=== PATIENT | female | born 1960 | race African-American/Black ===

== ENCOUNTER 2018-08-29 21:00 | Inpatient (IN) | payer SELFPAY ==
[2018-08-29] MEDS ORDERED: LEVALBUTEROL 1.25 MG/3 ML NEB ONE (21:39)
[2018-08-29] MEDS ORDERED: METHYLPREDNISOLONE 125 MG INJ ONE (21:39)
[2018-08-29 21:40] LABS: Absolute Lymphocytes (CBC) 0.8 K/uL (0.7-4.9); Absolute Monocytes 0.8 K/uL (0.1-1.3); Absolute Neutrophil 8.4 K/uL (1.8-8.0); Basophils % 0.2 % (0-1.3); Eosinophils % 0.2 % (0-4.4); Hematocrit 30.6 % (36.0-45.0); MPV 8.5 fL (7.6-11.3); Monocytes % 7.5 % (3.3-12.3); RBC Red Blood Cell Count 3.07 M/uL (3.86-4.86)
[2018-08-29] MEDS ORDERED: NA CHLORIDE 0.9% 1,000 ML ONE (21:40)
[2018-08-29] MEDS ORDERED: MAGNESIUM SULFATE 1 gm IVPB 1 GM/100 ML BAG IV ONE (21:40)
[2018-08-29 21:44] LABS: Protime INR 0.97
[2018-08-29] MEDS ORDERED: MORPHINE 4 MG/ML SYR ONE (21:56)
[2018-08-29] MEDS ORDERED: ACETAMINOPHEN 325 MG TABLET ONE (21:56)
[2018-08-29 22:02] LABS: ALT/SGPT 22 U/L (12-78); AST/SGOT 15 U/L (15-37); Albumin 3.8 g/dL (3.4-5.0); Alkaline Phosphatase 68 U/L (45-117); BUN Blood Urea Nitrogen 17 mg/dL (7-18); Bicarbonate 23 mmol/L (21-32); Bilirubin Direct 0.1 mg/dL (0-0.2); Bilirubin Total 0.5 mg/dL (0.2-1.0); Glucose Level 115 mg/dL (74-106); Lipase 98 U/L (73-393); Magnesium 2.3 mg/dL (1.8-2.4); NT PRO-BNP 153 pg/mL (<125); Potassium 3.5 mmol/L (3.5-5.1); Protein, Total 7.3 g/dL (6.4-8.2); Sodium Level 139 mmol/L (136-145); Troponin (Emerg Dept Use Only) < 0.02 ng/mL (0.0-0.045)
--- NOTE | 2018-08-30 01:27 | ER ---
Nurse's Notes [facility] Name: Damaris Oneal Age: 58 yrs Sex: Female : 1960 Arrival Date: 08/29/2018 Time: 21:03 Bed 20 Private MD: Diagnosis: Pneumonia;Hypoxia;Asthma Exacerbation Presentation: 08/29 21:13 Presenting complaint: Patient states: fever, productive cough, lethargic X3 days. ak1 Transition of care: patient was not received from another setting of care. Onset of symptoms is unknown. Risk Assessment: Do you want to hurt yourself or someone else? Patient reports no desire to harm self or others. Care prior to arrival: None. 21:13 Method Of Arrival: Wheelchair ak1 21:13 Acuity: LINDA 3 ak1 21:24 Initial Sepsis Screen: Does the patient meet any 2 criteria? Temp <36.0*C (96.8*F)) or jd3 > 38.3*C (100.9*F). HR > 90 bpm. Yes Does the patient have a suspected source of infection? Yes: Productive cough/pneumonia If YES to both, name of provider notified: Ashok SCOTT. Triage Assessment: 21:15 General: Appears uncomfortable, ill, Behavior is cooperative, drowsy. Neuro: Level of ak1 Consciousness is awake, alert, obeys commands, lethargic, Oriented to person, place, time, situation. Historical: - Allergies: 21:15 No Known Allergies; ak1 - Home Meds: 21:15 lisinopril 30 mg Oral tab 1 tab once daily [Active]; Singulair Oral [Active]; ak1 Prednisone Oral [Active]; cataract drops [Active]; - PMHx: 21:15 Hypertension; ak1 - Immunization history:: Adult Immunizations unknown. - Social history:: Smoking status: Patient uses tobacco products, denies chronic smoking, but will smoke occasionally. - Ebola Screening: : No symptoms or risks identified at this time. Screenin:24 Abuse screen: Denies threats or abuse. Nutritional screening: No deficits noted. jd3 Tuberculosis screening: No symptoms or risk factors identified. Fall Risk IV access (20 points). Ambulatory Aid- Crutches/Cane/Walker (15 pts). Gait- Weak (10 pts.). Mental Status- Overestimates/Forgets Limitations (15 pts.). Total Weaver Fall Scale indicates High Risk Score (45 or more points). Fall prevention measures have been instituted. Side Rails Up X 2 Placed Close to Nursing Station Frequent Obs/Assessments Occuring Family Present and informed to notify staff if the need to leave the bedside. Assessment: 21:20 General: Appears uncomfortable, Behavior is cooperative, crying, restless. Pain: jd3 Complains of pain in reports generalized pain and chest pain Quality of pain is described as aching. Neuro: Level of Consciousness is awake, alert, obeys commands, Oriented to person, place, time, situation. Cardiovascular: Heart tones S1 S2 present Capillary refill < 3 seconds Patient's skin is warm and dry. Respiratory: Reports shortness of breath cough that is Airway is patent Respiratory effort is even, unlabored, Respiratory pattern is regular, symmetrical, Breath sounds with wheezes bilaterally. GI: Abdomen is round Bowel sounds present X 4 quads. Abd is soft and non tender X 4 quads. Reports nausea, Patient currently denies vomiting. : No signs and/or symptoms were reported regarding the genitourinary system. EENT: Parent/caregiver reports the patient having nasal congestion. Derm: Skin is intact, Skin is dry, Skin is normal, Skin temperature is warm. Musculoskeletal: Circulation, motion, and sensation intact. Range of motion: intact in all extremities. 22:27 Reassessment: Patient appears in no apparent distress at this time. No changes from jd3 previously documented assessment. Patient and/or family updated on plan of care and expected duration. Pain level reassessed. Patient is alert, oriented x 3, equal unlabored respirations, skin warm/dry/pink. 23:30 Reassessment: Patient appears in no apparent distress at this time. No changes from jd3 previously documented assessment. Patient and/or family updated on plan of care and expected duration. Pain level reassessed. Patient is alert, oriented x 3, equal unlabored respirations, skin warm/dry/pink. 08/30 00:19 Reassessment: Patient appears in no apparent distress at this time. Patient and/or jd3 family updated on plan of care and expected duration. Pain level reassessed. Patient is alert, oriented x 3, equal unlabored respirations, skin warm/dry/pink. pt with decreased O2 sat at 88%, placed on 2 L O2 nasal canula. provider notified, no new orders at this time. 01:12 Reassessment: Patient appears in no apparent distress at this time. No changes from j previously documented assessment. Patient and/or family updated on plan of care and expected duration. Pain level reassessed. Patient is alert, oriented x 3, equal unlabored respirations, skin warm/dry/pink. Vital Signs: 08/29 21:15 BP 137 / 64; Pulse 111; Resp 20; Temp 101.3(O); Pulse Ox 94% on R/A; Weight 74.84 kg ak1 (R); Height 5 ft. 7 in. (170.18 cm) (R); Pain 4/10; 22:28 BP 151 / 74; Pulse 110; Resp 20 S; Pulse Ox 94% on R/A; jd3 23:31 BP 143 / 80; Pulse 86; Resp 17 S; Pulse Ox 93% on R/A; jd3 08/30 00:19 BP 146 / 79; Pulse 94; Resp 20 S; Pulse Ox 94% on 2 lpm NC; jd3 01:12 BP 137 / 72; Pulse 83; Resp 18 S; Pulse Ox 97% on R/A; jd3 08/29 21:15 Body Mass Index 25.84 (74.84 kg, 170.18 cm) [facility] ED Course: 08/29 21:03 Patient arrived in ED. am2 21:11 Ashok Rebolledo PA is PHCP. [facility] 21:11 Chris Israel MD is Attending Physician. [facility] 21:13 Triage completed. ak1 21:13 Pradip Garcia, RN is Primary Nurse. j 21:15 Arm band placed on Patient placed in an exam room, on a stretcher, on cardiac care unit nurse, ak1 on pulse oximetry, Patient notified of wait time. 21:23 Patient has correct armband on for positive identification. Bed in low position. Call j light in reach. Side rails up X2. Adult w/ patient. 21:41 Inserted saline lock: 20 gauge in right antecubital area, using aseptic technique. jd3 Blood collected. placed by [facility] tech. 23:42 Patient moved to NM via stretcher. kw1 08/30 00:11 CT completed. Patient tolerated procedure well. Patient moved back from CT. kw1 00:17 CT Head Brain wo Cont In Process Unspecified. EDMS 00:21 Chest For PE Angio CT In Process Unspecified. EDMS 01:19 Lester Rush MD is Hospitalizing Provider. jmm 01:54 No provider procedures requiring assistance completed. jd3 01:54 Patient admitted, IV remains in place. jd3 Administered Medications: 08/29 21:43 Drug: Xopenex (3) 1.25 mg Route: Inhalation; jd3 08/30 01:51 Follow up: Response: No adverse reaction jd3 08/29 21:44 Drug: Magnesium Sulfate 1 grams Route: IVPB; Infused Over: 1 hrs; Site: right [facility] antecubital; 08/30 01:50 Follow up: Response: No adverse reaction; IV Status: Completed infusion jd3 08/29 21:44 Drug: SOLU-Medrol 125 mg Route: IVP; Site: right antecubital; jd3 08/30 01:50 Follow up: Response: No adverse reaction jd3 08/29 21:44 Drug: NS 0.9% 1000 ml Route: IV; Rate: 1 bolus; Site: right antecubital; jd3 08/30 01:50 Follow up: Response: No adverse reaction; IV Status: Completed infusion jd3 08/29 21:52 Drug: morphine 2 mg Route: IVP; Site: right antecubital; jd3 08/30 01:49 Follow up: Response: No adverse reaction jd3 08/29 21:52 Drug: Tylenol 650 mg Route: PO; jd3 08/30 01:49 Follow up: Response: No adverse reaction jd3 08/29 23:33 Drug: morphine 2 mg Route: IVP; Site: right antecubital; jd3 08/30 01:49 Follow up: Response: No adverse reaction jd3 Outcome: 01:20 Decision to Hospitalize by Provider. jmm 02:04 Admitted to Med/surg accompanied by tech, via stretcher, room 410, with chart, Report jd3 called to Sherri SCOTT 02:04 Condition: stable 02:04 Instructed on the need for admit, Demonstrated understanding of instructions. 02:07 Patient left the ED. jd3 Signatures: Dispatcher [employer] EDMS Ashok Rebolledo PA PA jmm Krenek, Amber, RN RN ak1 Nicol Jung am2 Pradip Garcia, RN RN jd3 Tova Javier kw1 Corrections: (The following items were deleted from the chart) 08/29 23:18 21:20 Cardiovascular: Heart tones S1 S2 present Capillary refill < 3 seconds Patient's jd3 skin is warm and dry. Rhythm is jd3 23:18 21:20 Cardiovascular: Heart tones S1 S2 present Capillary refill < 3 seconds Patient's jd3 skin is warm and dry. Rhythm is regular jd3 23:31 21:20 Neuro: Level of Consciousness is awake, alert, obeys commands, Oriented to jd3 person, place, situation, jd3 23:31 22:27 Reassessment: Patient appears in no apparent distress at this time. No changes jd3 from previously documented assessment. Patient and/or family updated on plan of care and expected duration. Pain level reassessed. jd3 : 23:30 Reassessment: Patient appears in no apparent distress at this time. No changes jd3 from previously documented assessment. Patient and/or family updated on plan of care and expected duration. Pain level reassessed. jd3 08/30 01:12 00:19 Reassessment: Patient appears in no apparent distress at this time. Patient jd3 and/or family updated on plan of care and expected duration. Pain level reassessed. Patient is alert, oriented x 3, equal unlabored respirations, skin warm/dry/pink. jd3 :08/29 21:24 Initial Sepsis Screen: Does the patient meet any 2 criteria? Temp <36.0*C jd3 (96.8*F)) or > 38.3*C (100.9*F). HR > 90 bpm. Yes Does the patient have a suspected source of infection? Yes: Productive cough/pneumonia If YES to both, name of provider notified: Ashok SCOTT jd3
--- NOTE | 2018-08-30 01:27 | EDPHYS ---
Physician Documentation [facility] Name: Damaris Oneal Age: 58 yrs Sex: Female : 1960 Arrival Date: 08/29/2018 Time: 21:03 Bed 20 Private MD: ED Physician Chris Israel HPI: 08/29 21:24 This 58 yrs old Black Female presents to ER via Wheelchair with complaints of Cough, jmm fever. 21:24 The patient or guardian reports cough, described as moderate, with productive sputum. jmm Onset: The symptoms/episode began/occurred gradually, 2 day(s) ago. Modifying factors: The symptoms are alleviated by nothing. Associated signs and symptoms: Pertinent positives: fever. This is a 58 year old female with a history of asthma, htn that presents to the ED with cough, shortness of breath beginning 2 days ago she attributed to asthma. Patient states she did not receive flu vaccine. . Historical: - Allergies: 21:15 No Known Allergies; ak1 - Home Meds: 21:15 lisinopril 30 mg Oral tab 1 tab once daily [Active]; Singulair Oral [Active]; ak1 Prednisone Oral [Active]; cataract drops [Active]; - PMHx: 21:15 Hypertension; ak1 - Immunization history:: Adult Immunizations unknown. - Social history:: Smoking status: Patient uses tobacco products, denies chronic smoking, but will smoke occasionally. - Ebola Screening: : No symptoms or risks identified at this time. ROS: 21:24 Abdomen/GI: Negative for abdominal pain, nausea, vomiting, diarrhea, and constipation, jmm Back: Negative for injury and pain, : Negative for injury, bleeding, discharge, and swelling, MS/Extremity: Negative for injury and deformity, Skin: Negative for injury, rash, and discoloration, Neuro: Negative for headache, weakness, numbness, tingling, and seizure. 21:24 Constitutional: Positive for fever. 21:24 Respiratory: Positive for cough, shortness of breath. 21:24 All other systems are negative. Exam: 21:24 Head/Face: atraumatic. Chest/axilla: Normal chest wall appearance and motion. jmm Cardiovascular: Regular rate and rhythm. No edema appreciated 21:24 Abdomen/GI: Non distended, soft Back: Normal ROM Skin: General appearance color normal MS/ Extremity: Moves all extremities, no obvious deformities appreciated, no edema noted to the lower extremities Neuro: Awake and alert, normal gait Psych: Behavior is normal, Mood is normal, Patient is cooperative and pleasant 21:24 Constitutional: The patient appears alert, awake, anxious, uncomfortable. 21:24 Respiratory: mild respiratory distress is noted, Respirations: normal, Breath sounds: wheezing: is heard diffusely. Vital Signs: 21:15 BP 137 / 64; Pulse 111; Resp 20; Temp 101.3(O); Pulse Ox 94% on R/A; Weight 74.84 kg ak1 (R); Height 5 ft. 7 in. (170.18 cm) (R); Pain 4/10; 22:28 BP 151 / 74; Pulse 110; Resp 20 S; Pulse Ox 94% on R/A; jd3 23:31 BP 143 / 80; Pulse 86; Resp 17 S; Pulse Ox 93% on R/A; [facility] 08/30 00:19 BP 146 / 79; Pulse 94; Resp 20 S; Pulse Ox 94% on 2 lpm NC; jd3 01:12 BP 137 / 72; Pulse 83; Resp 18 S; Pulse Ox 97% on R/A; [facility] 08/29 21:15 Body Mass Index 25.84 (74.84 kg, 170.18 cm) ak MDM: 08/29 21:22 Patient medically screened. [facility] 08/30 01:17 Data reviewed: vital signs, nurses notes, lab test result(s), radiologic studies, CT [facility] scan. Counseling: I had a detailed discussion with the patient and/or guardian regarding: the historical points, exam findings, and any diagnostic results supporting the discharge/admit diagnosis, lab results, radiology results, the need for further work-up and treatment in the hospital. ED course: I discussed the patient with Dr. Rush whom accepted admission. . 08/29 21:10 Order name: Flu; Complete Time: 21:47 [facility] 08/29 21:13 Order name: Basic Metabolic Panel; Complete Time: 22:07 [facility] 08/29 21:13 Order name: CBC with Diff; Complete Time: 21:47 [facility] 08/29 21:13 Order name: LFT's; Complete Time: 22:07 [facility] 08/29 21:13 Order name: Magnesium; Complete Time: 22:07 [facility] 08/29 21:13 Order name: NT PRO-BNP; Complete Time: 22:07 [facility] 08/29 21:13 Order name: PT-INR; Complete Time: 21:47 [facility] 08/29 21:13 Order name: Troponin (emerg Dept Use Only); Complete Time: 22:07 [facility] 08/29 21:13 Order name: Lipase; Complete Time: 22:07 [facility] 08/29 21:13 Order name: Procalcitonin; Complete Time: 22:34 [facility] 08/29 21:13 Order name: Blood Culture Adult (2) [facility] 08/29 21:13 Order name: Lactate; Complete Time: 22:07 [facility] 08/29 22:52 Order name: Chest For PE Angio CT [facility] 08/30 00:25 Order name: Urine Dipstick--Ancillary (enter results) [facility] 08/29 21:13 Order name: EKG; Complete Time: 21:14 [facility] 08/29 21:13 Order name: Cardiac monitoring; Complete Time: 21:20 [facility] 08/29 21:13 Order name: EKG - Nurse/Tech; Complete Time: 21:41 [facility] 08/29 21:13 Order name: IV Saline Lock; Complete Time: 21:41 [facility] 08/29 21:13 Order name: Labs collected and sent; Complete Time: 21:42 [facility] 08/29 21:13 Order name: O2 Per Protocol; Complete Time: 21:20 [facility] 08/29 21:13 Order name: O2 Sat Monitoring; Complete Time: 21:20 [facility] 08/29 23:24 Order name: CT Head Brain wo Cont [facility] Administered Medications: 08/29 21:43 Drug: Xopenex (3) 1.25 mg Route: Inhalation; [facility] 08/30 01:51 Follow up: Response: No adverse reaction [facility] 08/29 21:44 Drug: Magnesium Sulfate 1 grams Route: IVPB; Infused Over: 1 hrs; Site: right [facility] antecubital; 08/30 01:50 Follow up: Response: No adverse reaction; IV Status: Completed infusion [facility] 08/29 21:44 Drug: SOLU-Medrol 125 mg Route: IVP; Site: right antecubital; [facility] 08/30 01:50 Follow up: Response: No adverse reaction [facility] 08/29 21:44 Drug: NS 0.9% 1000 ml Route: IV; Rate: 1 bolus; Site: right antecubital; jd3 08/30 01:50 Follow up: Response: No adverse reaction; IV Status: Completed infusion jd3 08/29 21:52 Drug: morphine 2 mg Route: IVP; Site: right antecubital; jd3 08/30 01:49 Follow up: Response: No adverse reaction jd3 08/29 21:52 Drug: Tylenol 650 mg Route: PO; jd3 08/30 01:49 Follow up: Response: No adverse reaction jd3 08/29 23:33 Drug: morphine 2 mg Route: IVP; Site: right antecubital; jd3 08/30 01:49 Follow up: Response: No adverse reaction jd3 Disposition: 04:29 Co-signature as Attending Physician, Chris Israel MD. elodia Disposition: 08/30/18 01:20 Hospitalization ordered by Lester Rush for Observation. Preliminary diagnosis are Pneumonia, Hypoxia, Asthma Exacerbation. - Bed requested for Telemetry/MedSurg (observation). - Status is Observation. jd3 - Condition is Stable. - Problem is an acute exacerbation. - Symptoms have improved. UTI on Admission? No Signatures: Dispatcher [employer] EDMS Juanita Finley RN RN mw Lam, Pin, MD MD pkl Mickail, Joel, PA PA jmm Krenek, Amber RN RN ak1 Pradip Garcia RN RN jd3 Corrections: (The following items were deleted from the chart) 01:44 01:20 Hospitalization Ordered by Lester Rush MD for Observation. Preliminary diagnosis is Pneumonia; Hypoxia; Asthma Exacerbation. Bed requested for Telemetry/MedSurg (observation). Status is Observation. Condition is Stable. Problem is an acute exacerbation. Symptoms have improved. UTI on Admission? No. jmm 02:07 01:44 08/30/2018 01:20 Hospitalization Ordered by Lester Rush MD for Observation. jd3 Preliminary diagnosis is Pneumonia; Hypoxia; Asthma Exacerbation. Bed requested for Telemetry/MedSurg (observation). Status is Observation. Condition is Stable. Problem is an acute exacerbation. Symptoms have improved. UTI on Admission? No. gigi
--- NOTE | 2018-08-30 02:05 | P.HP ---
Certification for Inpatient Patient admitted to: Inpatient With expected LOS: >2 Midnights Practitioner: I am a practitioner with admitting privileges, knowledge of patient current condition, hospital course, and medical plan of care. Services: Services provided to patient in accordance with Admission requirements found in Title 42 Section 412.3 of the Code of Federal Regulations Patient History Date of Service: 08/30/18 Reason for admission: pneumonia History of Present Illness: Ms Oneal is a 58 years old woman with history of HTN, chronic moderate persistent asthma who start about 3 days with productive cough and SOB. She also has had fever today. She is complaining of headache, and chest pain when she cough. Lab work shows normal WBC, lactate and procalcitonin level. However, CT margie remarkable for small consolidation in the left upper lobe, radiology report states pneumonia vs malignancy. At arrival she was febrile 101.3, O2 sat on RA 88%. Allergies No Known Allergies Allergy (Unverified 08/30/18 01:58) Home medications list reviewed: Yes - Past Medical/Surgical History -: chronic moderate persistent asthma -: HTN Past Surgical History: Reviewed- Non-Contributory - Family History Family History: Reviewed- Non-Contributory - Social History Smoking Status: Current every day smoker Counseled patient to stop smoking for: less than 10 minutes CD- Drugs: No Place of Residence: Home Review of Systems 10-point ROS is otherwise unremarkable Physical Examination - Physical Exam General: Alert, In no apparent distress HEENT: Atraumatic, PERRLA, Mucous membr. moist/pink, EOMI, Sclerae nonicteric Neck: Supple, 2+ carotid pulse no bruit, No LAD, Without JVD or thyroid abnormality Respiratory: Normal air movement, Crackles/rales (crackels mid field left side) , Expiratory wheezes (scattered wheezing bilateral) Cardiovascular: Regular rate/rhythm, Normal S1 S2 Gastrointestinal: Normal bowel sounds, No tenderness Musculoskeletal: No tenderness Integumentary: No rashes Neurological: Normal speech, Normal strength at 5/5 x4 extr, Normal tone, Normal affect Lymphatics: No axilla or inguinal lymphadenopathy - Studies Laboratory Data (last 24 hrs) 08/29/18 21:30: PT 11.4, INR 0.97 08/29/18 21:30: WBC 10.0, Hgb 10.4 L, Hct 30.6 L, Plt Count 189 08/29/18 21:30: Sodium 139, Potassium 3.5, BUN 17, Creatinine 0.99, Glucose 115 H, Magnesium 2.3, Total Bilirubin 0.5, AST 15, ALT 22, Alkaline Phosphatase 68, Lipase 98 Microbiology Data (last 24 hrs): 08/29/18 21:10 Nasopharnyx Influenza Type A Antigen Screen - Final 08/29/18 21:10 Nasopharnyx Influenza Type B Antigen Screen - Final Assessment and Plan - Problems (Diagnosis) (1) Acute respiratory failure Current Visit: Yes Status: Acute (2) Pneumonia Current Visit: Yes Status: Acute Qualifiers: Pneumonia type: due to unspecified organism Laterality: left Lung location: upper lobe of lung Qualified Code(s): J18.1 - Lobar pneumonia, unspecified organism (3) Moderate persistent chronic asthma with acute exacerbation Current Visit: Yes Status: Acute (4) HTN (hypertension) Current Visit: Yes Status: Acute Qualifiers: Hypertension type: essential hypertension Qualified Code(s): I10 - Essential (primary) hypertension - Plan The patient will be admitted to the hospital due to moderate persistent asthma with acute exacerbation secondary to pneumonia. Influenza negative. Will order IV antibiotics, IV steroids and breathing treatments. - Advance Directives Does patient have a Living Will: No Does patient have a Durable POA for Healthcare: No - Code Status/Comfort Care Code Status Assessed: Yes Code Status: Full Code
[2018-08-30 02:37] VITALS: BMI 25.3
[2018-08-30] MEDS ORDERED: ONDANSETRON 4 MG/2 ML VIAL IV PRN (02:37)
[2018-08-30] MEDS: NA CHLORIDE 0.9% 1,000 ML IV SCH ×3 (03:28→22:37)
[2018-08-30] MEDS: TRAMADOL HCL 50 MG TAB PO PRN (03:29)
[2018-08-30] MEDS: IPRATROPIUM BROM 0.5MG/2.5ML NEB PRN ×3 (03:55→19:21)
[2018-08-30] MEDS: ALBUTEROL 2.5 MG/3 ML NEB SOL NEB PRN ×3 (03:55→19:21)
[2018-08-30 04:30] LABS: Urine Blood NEGATIVE (NEG); Urine Glucose NEGATIVE (NEG); Urine Protein NEGATIVE (NEG)
[2018-08-30] MEDS ORDERED: AZITHROMYCIN IV 500 MG in NA CHLORIDE 0.9% 250 ML IVPB SCH (05:00)
[2018-08-30] MEDS ORDERED: CEFTRIAXONE 1 GM/NS 50 ML 1 GM/50 ML BAG IV SCH (06:00)
[2018-08-30] MEDS ORDERED: CEFTRIAXONE/SWI 1gm 1 GM/10 ML SYR ONE (06:16)
--- NOTE | 2018-08-30 06:58 | RAD REPORT ---
EXAM DESCRIPTION: CT - Head Brain Wo Cont - 08/30/2018 5:41 am CLINICAL HISTORY: Hypertension, lethargy, headache A preliminary report was provided at the time of the study and reviewed prior to final report. COMPARISON: None. TECHNIQUE: Axial 5 mm thick images of the head were obtained without IV contrast. All CT scans are performed using dose optimization technique as appropriate and may include automated exposure control or mA/KV adjustment according to patient size. FINDINGS: No intracranial hemorrhage, mass, edema or shift of mid-line structures. No acute infarcti on changes seen. No abnormal extra-axial fluid collections. Ventricles are normal. No measurable atro phy or chronic ischemic change. Mastoid air cells and visualized portions of the paranasal sinuses are clear. No acute bony findings. IMPRESSION: Negative non-contrast CT head examination.
--- NOTE | 2018-08-30 07:00 | RAD REPORT ---
EXAM DESCRIPTION: CT - Chest For Pe Angio - 08/30/2018 5:42 am CLINICAL HISTORY: Fever, productive cough, shortness of breath A preliminary report was provided at the time of the study and reviewed prior to final report. COMPARISON: None. TECHNIQUE: Dynamically enhanced 3 mm thick images of the chest were obtained during administration o f approximately 150mL Isovue 370 IV contrast. Coronal and oblique MIP reconstruction images were gene rated and reviewed. Exam utilizes a protocol to evaluate the pulmonary arterial tree. All CT scans are performed using dose optimization technique as appropriate and may include automated exposure control or mA/KV adjustment according to patient size. FINDINGS: No pulmonary emboli are identified. Motion limits far peripheral branch assessment. The aorta as imaged shows no acute or suspicious finding. No pericardial thickening or effusion. Patchy airspace opacification is present in the left upper lobe adjacent to the hilum. In the acute c linical setting this is most likely a minimal pneumonia. No masslike consolidation to suspect maligna ncy. No pleural effusion or pleural thickening. No mediastinal or hilar suspicious masses. No chest wall masses or abnormal axillary lymphadenopathy. IMPRESSION: Exam is somewhat degraded by motion limiting far peripheral branch assessment. No pulmon julieth embolic disease confirmed. Minimal pneumonia changes in the left upper lobe adjacent to the hilum.
--- NOTE | 2018-08-30 07:58 | EKG ---
Test Date: 2018-08-29 Test Time: 21:24:43 Police Lieutenant: MEASUREMENT RESULTS: Intervals: Rate: 103 SD: 140 QRSD: 74 QT: 318 QTc: 416 [place]: P: 72 SD: 140 QRS: 10 T: 47 INTERPRETIVE STATEMENTS: Sinus tachycardia with occasional premature ventricular complexes Nonspecific ST and T wave abnormality Abnormal ECG No previous ECG available for comparison Electronically Signed On 08-30-18 07:57:07 [employer] INSPECTOR by Israel Guajardo
[2018-08-30] MEDS: ACETAMINOPHEN 500 MG TAB PO PRN ×2 (08:34→19:03)
[2018-08-30] MEDS: METHYLPREDNISOLONE 40 MG INJ IV SCH ×2 (09:54→17:20)
[2018-08-30] MEDS: ENOXAPARIN 40 MG/0.4 ML SQ SCH (09:54)
[2018-08-30] MEDS: AZITHROMYCIN IV 500 MG in NA CHLORIDE 0.9% 250 ML IVPB SCH (10:16)
[2018-08-30] MEDS ORDERED: HYDROCODONE/APAP 5/325 MG TAB PO PRN (12:40)
[2018-08-30] MEDS ORDERED: BENZONATATE 100 MG CAP PO PRN (13:47)
[2018-08-30] MEDS ORDERED: MORPHINE 4 MG/ML SYR IV ONE (14:00)
[2018-08-30] MEDS: GUAIFENESIN/CODEINE 5ML UCUP PO PRN ×2 (14:20→20:20)
[2018-08-30] MEDS ORDERED: ZOLPIDEM TARTRATE 5 MG TABLET PO PRN (19:00)
[2018-08-30] MEDS: MONTELUKAST 10 MG TAB PO SCH (20:20)
[2018-08-30] MEDS ORDERED: LORAZEPAM 1 MG TABLET PO ONE (23:39)
[2018-08-31] MEDS: METHYLPREDNISOLONE 40 MG INJ IV SCH ×3 (00:03→17:33)
[2018-08-31] MEDS: NA CHLORIDE 0.9% 1,000 ML IV SCH ×2 (00:09→08:37)
[2018-08-31] MEDS: CEFTRIAXONE/SWI 1gm 1 GM/10 ML SYR IV SCH (05:19)
[2018-08-31] MEDS: IPRATROPIUM BROM 0.5MG/2.5ML NEB PRN ×3 (05:35→14:35)
[2018-08-31] MEDS: ALBUTEROL 2.5 MG/3 ML NEB SOL NEB PRN ×4 (05:35→21:21)
[2018-08-31 06:43] LABS: Absolute Lymphocytes (CBC) 0.4 K/uL (0.7-4.9); Absolute Monocytes 0.7 K/uL (0.1-1.3); Absolute Neutrophil 7.7 K/uL (1.8-8.0); Basophils % 0.2 % (0-1.3); Hematocrit 29.1 % (36.0-45.0); Lymphocytes % 4.7 % (15.3-44.8); MPV 8.4 fL (7.6-11.3); RBC Red Blood Cell Count 2.93 M/uL (3.86-4.86)
[2018-08-31 07:02] LABS: BUN Blood Urea Nitrogen 13 mg/dL (7-18); Bicarbonate 26 mmol/L (21-32); Glucose Level 127 mg/dL (74-106); Potassium 3.9 mmol/L (3.5-5.1); Sodium Level 141 mmol/L (136-145)
--- NOTE | 2018-08-31 07:53 | RAD REPORT ---
EXAM DESCRIPTION: RAD - Chest Pa And Lat (2 Views) - 08/31/2018 6:52 am CLINICAL HISTORY: Pneumonia COMPARISON: CT chest August 29 TECHNIQUE: PA and lateral views of the chest were obtained. FINDINGS: The lungs are normal volume. Left perihilar infiltrate seen on the August 29 CT chest stud y is still present. There may be a slight increase in opacification in the lingula anterior left base . No progressive right lung field finding identifiable. Heart size is normal and central vasculature is within normal limits. No pleural effusion or pneumot horax seen. No acute bony finding noted. No aortic abnormality. IMPRESSION: Left perihilar infiltrative process is still present and there is new opacification in t he lingula at the anterior left base.
[2018-08-31 08:41] LABS: Blood Morphology Comment NOT SEEN (NOT SEEN); Platelet Estimate ADEQ; Urine White Blood Cell Casts OK
[2018-08-31] MEDS: AZITHROMYCIN IV 500 MG in NA CHLORIDE 0.9% 250 ML IVPB SCH (08:50)
[2018-08-31] MEDS: ENOXAPARIN 40 MG/0.4 ML SQ SCH (08:51)
[2018-08-31] MEDS: LISINOPRIL 20 MG TAB PO SCH (08:52)
[2018-08-31] MEDS ORDERED: HOME MED 1 EA UNK (Lisinopril [Lisinopril] 30 MG) PO SCH (09:00)
[2018-08-31] MEDS ORDERED: POTASSIUM CL SA 10 MEQ TAB PO ONE (09:00)
[2018-08-31] MEDS: GUAIFENESIN/CODEINE 5ML UCUP PO PRN ×2 (09:06→14:46)
[2018-08-31] MEDS ORDERED: LORAZEPAM 1 MG TABLET PO PRN (11:39)
--- NOTE | 2018-08-31 17:44 | P.PN ---
Subjective Date of Service: 08/31/18 Chief Complaint: pneumonia Subjective: No new changes, No C/O voiced Patient seen and examined at bedside. Family at bedside. Chart reviewed and case discussed with nursing staff. Review of Systems 10-point ROS is otherwise unremarkable Physical Examination - Vital Signs Temperature: 99.1 F Blood Pressure: 159/73 Pulse: 90 Respirations: 20 Pulse Ox (%): 95 - Physical Exam General: Alert, In no apparent distress, Oriented x3 HEENT: Atraumatic, PERRLA, EOMI Neck: Supple, JVD not distended Respiratory: Diminished, Crackles/rales, Expiratory wheezes Cardiovascular: Regular rate/rhythm, Normal S1 S2 Gastrointestinal: Normal bowel sounds, No tenderness Musculoskeletal: No tenderness Integumentary: No rashes Neurological: Normal speech, Normal tone, Normal affect Lymphatics: No axilla or inguinal lymphadenopathy Assessment And Plan - Current Problems (Diagnosis) (1) Acute respiratory failure Current Visit: Yes Status: Acute (2) HTN (hypertension) Current Visit: Yes Status: Acute Qualifiers: Hypertension type: essential hypertension Qualified Code(s): I10 - Essential (primary) hypertension (3) Moderate persistent chronic asthma with acute exacerbation Current Visit: Yes Status: Acute (4) Pneumonia Current Visit: Yes Status: Acute Qualifiers: Pneumonia type: due to unspecified organism Laterality: left Lung location: upper lobe of lung Qualified Code(s): J18.1 - Lobar pneumonia, unspecified organism - Plan Continue IV antibiotics, IV steroids and breathing treatments. Continue cough syrup for antitussive Repeat chest x-ray unchanged from CT scan on admission. Continue home medications. DVT prophylaxis: Lovenox GI prophylaxis: Protonix Diet: Heart healthy Disposition: Pending symptomatic improvement.
[2018-08-31] MEDS ORDERED: TRAMADOL HCL 50 MG TAB PO ONE (20:19)
[2018-08-31] MEDS: MONTELUKAST 10 MG TAB PO SCH (21:39)
[2018-09-01] MEDS: TRAZODONE 50 MG TABLET PO PRN ×2 (00:31→22:28)
[2018-09-01] MEDS: METHYLPREDNISOLONE 40 MG INJ IV SCH ×3 (00:31→17:00)
[2018-09-01] MEDS: CEFTRIAXONE/SWI 1gm 1 GM/10 ML SYR IV SCH (05:40)
[2018-09-01 07:22] LABS: Magnesium 2.7 mg/dL (1.8-2.4)
[2018-09-01] MEDS: ALBUTEROL 2.5 MG/3 ML NEB SOL NEB PRN ×4 (07:30→20:52)
[2018-09-01] MEDS: IPRATROPIUM BROM 0.5MG/2.5ML NEB PRN ×4 (07:30→20:52)
[2018-09-01] MEDS: LISINOPRIL 20 MG TAB PO SCH (09:33)
[2018-09-01] MEDS: TRAMADOL HCL 50 MG TAB PO PRN ×3 (09:34→22:29)
[2018-09-01] MEDS: AZITHROMYCIN IV 500 MG in NA CHLORIDE 0.9% 250 ML IVPB SCH (09:35)
[2018-09-01] MEDS: GUAIFENESIN/CODEINE 5ML UCUP PO PRN (09:37)
--- NOTE | 2018-09-01 10:32 | RAD REPORT ---
EXAM DESCRIPTION: MRI - Brain Wo Cont - 09/01/2018 8:45 am CLINICAL HISTORY: Confusion/slow cognitive response COMPARISON: August 29, [address] TECHNIQUE: Axial, sagittal, and coronal magnetic resonance images of the brain were obtained. FINDINGS: Mild areas increased signal are present within periventricular, deep and subcortical white matter which may represent ischemic changes secondary to mild small vessel disease. Diffusion-weighted/ADC mapping does not reveal evidence of acute infarction. The ventricles are normal caliber. An extra-axial fluid collection is not noted. Fluid is present within the ethmoid and right maxillary sinuses IMPRESSION: No acute intracranial abnormality seen Acute sinusitis
[2018-09-01] MEDS: ENOXAPARIN 40 MG/0.4 ML SQ SCH (12:02)
[2018-09-01] MEDS: ACETAMINOPHEN 500 MG TAB PO PRN ×2 (12:02→15:59)
--- NOTE | 2018-09-01 12:37 | P.PN ---
Subjective Date of Service: 09/01/18 Chief Complaint: pneumonia Subjective: No new changes, No C/O voiced, Improving Patient seen and examined at bedside. Family at bedside. Chart reviewed and case discussed with nursing staff. Complaining of a headache at this time. Seems to be sleepy as well, just received robitussin with codeine. Review of Systems 10-point ROS is otherwise unremarkable Physical Examination - Vital Signs Temperature: 97.8 F Blood Pressure: 182/85 Pulse: 63 Respirations: 20 Pulse Ox (%): 99 - Physical Exam General: Alert, Mild distress, Moderate distress, Other (sleepy but able to answer questions appropriately. ) HEENT: Atraumatic, Mucous membr. moist/pink Neck: Supple Respiratory: Dull, Crackles/rales Cardiovascular: No edema, Regular rate/rhythm, Normal S1 S2 Gastrointestinal: Normal bowel sounds, Soft and benign, Non-distended Musculoskeletal: No clubbing, No swelling Neurological: Normal gait, Normal speech, Normal strength at 5/5 x4 extr, Cranial nerves 3-12 intact Lymphatics: No axilla or inguinal lymphadenopathy Assessment And Plan - Current Problems (Diagnosis) (1) Acute respiratory failure Current Visit: Yes Status: Acute (2) HTN (hypertension) Current Visit: Yes Status: Acute Qualifiers: Hypertension type: essential hypertension Qualified Code(s): I10 - Essential (primary) hypertension (3) Moderate persistent chronic asthma with acute exacerbation Current Visit: Yes Status: Acute (4) Pneumonia Current Visit: Yes Status: Acute Qualifiers: Pneumonia type: due to unspecified organism Laterality: left Lung location: upper lobe of lung Qualified Code(s): J18.1 - Lobar pneumonia, unspecified organism (5) Confusion Current Visit: Yes Status: Resolved (6) Insomnia Current Visit: Yes Status: Chronic Qualifiers: Insomnia type: unspecified Qualified Code(s): G47.00 - Insomnia, unspecified - Plan This is a 58 yr old Female with: Acute respiratory failure (Acute) J96.00 Moderate persistent chronic asthma with acute exacerbation (Acute) J45.41 Pneumonia (Acute) J18.9 Continue IV antibiotics, IV steroids and breathing treatments. Continue cough syrup without codeine for antitussive Repeat chest x-ray unchanged from CT scan on admission. Wean oxygen as tolerated. HTN (hypertension) (Acute) I10 Stable, continue home medication. Will adjust as needed Confusion MRI done as patient was more confused and sleepy than normal. MRI negative for acute abnormalities. Discontinued codiene, xanax, etc. Tramadol for pain control. Insomnia Trazadone if needed. Educated family and patient on re-orienting, day/night schedules. DVT prophylaxis: Lovenox GI prophylaxis: Protonix Diet: Heart healthy Disposition: Pending symptomatic improvement. Physician Review: Patient Assessed, Agree with Above Assessment and Plan
[2018-09-01] MEDS: guaiFENesin 100 MG/5 ML UCUP PO PRN ×2 (15:32→20:43)
[2018-09-01] MEDS: MONTELUKAST 10 MG TAB PO SCH (20:44)
[2018-09-02] MEDS: METHYLPREDNISOLONE 40 MG INJ IV SCH ×3 (00:28→16:29)
[2018-09-02] MEDS: ALBUTEROL 2.5 MG/3 ML NEB SOL NEB PRN ×4 (01:12→20:45)
[2018-09-02] MEDS: IPRATROPIUM BROM 0.5MG/2.5ML NEB PRN ×4 (01:12→20:45)
[2018-09-02] MEDS: TRAMADOL HCL 50 MG TAB PO PRN ×4 (04:41→22:15)
[2018-09-02] MEDS: guaiFENesin 100 MG/5 ML UCUP PO PRN ×3 (04:45→22:15)
[2018-09-02] MEDS: CEFTRIAXONE/SWI 1gm 1 GM/10 ML SYR IV SCH (06:45)
[2018-09-02] MEDS: LISINOPRIL 20 MG TAB PO SCH (09:46)
[2018-09-02] MEDS: ENOXAPARIN 40 MG/0.4 ML SQ SCH (09:49)
[2018-09-02] MEDS: AZITHROMYCIN IV 500 MG in NA CHLORIDE 0.9% 250 ML IVPB SCH (09:49)
--- NOTE | 2018-09-02 12:01 | P.PN ---
Subjective Date of Service: 09/02/18 Chief Complaint: pneumonia Subjective: Tolerating diet, Improving Patient seen and examined at bedside. Family at bedside. Chart reviewed and case discussed with nursing staff. Much more awake and alert this morning. Reports feeling much better. Satting well on room air Review of Systems 10-point ROS is otherwise unremarkable Physical Examination - Vital Signs Temperature: 97.0 F Blood Pressure: 173/74 Pulse: 68 Respirations: 22 Pulse Ox (%): 93 - Physical Exam General: Alert, In no apparent distress, Oriented x3 HEENT: Atraumatic, PERRLA, EOMI Neck: Supple, JVD not distended Respiratory: Clear to auscultation bilaterally, Normal air movement Cardiovascular: Regular rate/rhythm, Normal S1 S2 Gastrointestinal: Normal bowel sounds, No tenderness Musculoskeletal: No tenderness Integumentary: No rashes Neurological: Normal speech, Normal tone, Normal affect Lymphatics: No axilla or inguinal lymphadenopathy Assessment And Plan - Current Problems (Diagnosis) (1) Acute respiratory failure Current Visit: Yes Status: Acute (2) HTN (hypertension) Current Visit: Yes Status: Acute Qualifiers: Hypertension type: essential hypertension Qualified Code(s): I10 - Essential (primary) hypertension (3) Moderate persistent chronic asthma with acute exacerbation Current Visit: Yes Status: Acute (4) Pneumonia Current Visit: Yes Status: Acute Qualifiers: Pneumonia type: due to unspecified organism Laterality: left Lung location: upper lobe of lung Qualified Code(s): J18.1 - Lobar pneumonia, unspecified organism (5) Confusion Current Visit: Yes Status: Resolved (6) Insomnia Current Visit: Yes Status: Chronic Qualifiers: Insomnia type: unspecified Qualified Code(s): G47.00 - Insomnia, unspecified - Plan This is a 58 yr old Female with: Acute respiratory failure (Acute) J96.00 Moderate persistent chronic asthma with acute exacerbation (Acute) J45.41 Pneumonia (Acute) J18.9 Improving Continue IV antibiotics, IV steroids and breathing treatments. Continue cough syrup without codeine for antitussive Repeat chest x-ray tomorrow. Satting well on room air, continue monitor HTN (hypertension) (Acute) I10 Stable, continue home medication. Will adjust as needed Confusion Resolved MRI done as patient was more confused and sleepy than normal. MRI negative for acute abnormalities. Discontinued codiene, xanax. Avoid sedating medications. Tramadol for pain control. Insomnia Trazadone if needed. Educated family and patient on re-orienting, day/night schedules. DVT prophylaxis: Lovenox GI prophylaxis: Protonix Diet: Heart healthy Disposition: Pending symptomatic improvement. Likely discharge home in the next 24-48 hr Discharge Plan: Home Physician Review: Patient Assessed, Agree with Above Assessment and Plan
[2018-09-02] MEDS ORDERED: IBUPROFEN 400 MG TAB PO ONE (13:44)
[2018-09-02] MEDS: TRAZODONE 50 MG TABLET PO PRN (22:15)
[2018-09-02] MEDS: MONTELUKAST 10 MG TAB PO SCH (22:15)
[2018-09-03] MEDS: METHYLPREDNISOLONE 40 MG INJ IV SCH ×2 (00:13→08:54)
[2018-09-03] MEDS ORDERED: MORPHINE 2 MG/ML SYR IV ONE (02:40)
[2018-09-03] MEDS ORDERED: MORPHINE 4 MG/ML SYR ONE (02:58)
[2018-09-03] MEDS: CEFTRIAXONE/SWI 1gm 1 GM/10 ML SYR IV SCH (06:00)
[2018-09-03] MEDS: guaiFENesin 100 MG/5 ML UCUP PO PRN (06:07)
[2018-09-03] MEDS: TRAMADOL HCL 50 MG TAB PO PRN (06:07)
[2018-09-03 06:19] LABS: Absolute Lymphocytes (CBC) 0.8 K/uL (0.7-4.9); Absolute Monocytes 0.5 K/uL (0.1-1.3); Basophils % 0.1 % (0-1.3); Hematocrit 30.4 % (36.0-45.0); Lymphocytes % 10.5 % (15.3-44.8); MPV 8.5 fL (7.6-11.3); RBC Red Blood Cell Count 3.06 M/uL (3.86-4.86)
[2018-09-03 06:45] LABS: Bilirubin Total 0.2 mg/dL (0.2-1.0); Protein, Total 6.2 g/dL (6.4-8.2)
[2018-09-03] MEDS: ALBUTEROL 2.5 MG/3 ML NEB SOL NEB PRN (08:35)
[2018-09-03] MEDS: IPRATROPIUM BROM 0.5MG/2.5ML NEB PRN (08:35)
[2018-09-03] MEDS: ENOXAPARIN 40 MG/0.4 ML SQ SCH (08:54)
[2018-09-03] MEDS: LISINOPRIL 20 MG TAB PO SCH (08:55)
[2018-09-03] MEDS: AZITHROMYCIN IV 500 MG in NA CHLORIDE 0.9% 250 ML IVPB SCH (08:56)
--- NOTE | 2018-09-03 09:40 | RAD REPORT ---
EXAM DESCRIPTION: RAD - Chest Single View - 09/03/2018 6:26 am CLINICAL HISTORY: PNA, sob Chest pain. COMPARISON: Chest Pa And Lat (2 Views) dated 08/31/2018 FINDINGS: Portable technique limits examination quality. The lungs are grossly clear. The heart is normal in size. No displaced fractures.A mild thoracic S-sh aped scoliosis. IMPRESSION: No acute intrathoracic process suspected.
[2018-09-03 11:01] VITALS: O2SAT 95
[2018-09-03 13:31] VITALS: BP 180/99; TEMP 97.4
--- NOTE | 2018-09-03 18:33 | P.DS ---
Admission Date: 08/30/18 Discharge Date: 09/03/18 Disposition: ROUTINE DISCHARGE Discharge Condition: GOOD Reason for Admission: pneumonia - Problems (1) Acute respiratory failure Status: Acute (2) HTN (hypertension) Status: Acute Qualifiers: Hypertension type: essential hypertension Qualified Code(s): I10 - Essential (primary) hypertension (3) Moderate persistent chronic asthma with acute exacerbation Status: Acute (4) Pneumonia Status: Acute Qualifiers: Pneumonia type: due to unspecified organism Laterality: left Lung location: upper lobe of lung Qualified Code(s): J18.1 - Lobar pneumonia, unspecified organism (5) Confusion Status: Resolved (6) Insomnia Status: Chronic Qualifiers: Insomnia type: unspecified Qualified Code(s): G47.00 - Insomnia, unspecified Brief History of Present Illness: Ms Oneal is a 58 years old woman with history of HTN, chronic moderate persistent asthma who start about 3 days with productive cough and SOB. She also has had fever today. She is complaining of headache, and chest pain when she cough. Lab work shows normal WBC, lactate and procalcitonin level. However, CT margie remarkable for small consolidation in the left upper lobe, radiology report states pneumonia vs malignancy. At arrival she was febrile 101.3, O2 sat on RA 88% Hospital Course: Acute respiratory failure (Acute) J96.00 Moderate persistent chronic asthma with acute exacerbation (Acute) J45.41 Pneumonia (Acute) J18.9 Continued IV antibiotics, IV steroids and breathing treatments. Continue cough syrup without codeine for antitussive Repeat chest x-ray with improvememt. Successfully weaned of [place] oxygen to room air. Satting well on room air. Asymptomatic except for the cough at discharge. Discharge on PO azithromycin, steroids. Follow up with PCP in 1-2 weeks. HTN (hypertension) (Acute) I10 Stable, continue home medication. Will adjust as needed Confusion Patient's stay complicated by some confusion and somnolence. MRI negative for acute abnormalities Discontinued codiene, xanax. Avoided sedating medications. Symptoms resolved. Given Tramadol for pain control. Insomnia, chronic. Trazadone as needed. Educated family and patient on re-orienting, day/night schedules. Improved through out the stay. Vital Signs/Physical Exam: Temp Pulse Resp BP Pulse Ox 97.4 F 70 20 180/99 H 95 09/03/18 12:00 09/03/18 12:00 09/03/18 12:00 09/03/18 12:00 09/03/18 12:00 General: Alert, In no apparent distress, Oriented x3 HEENT: Atraumatic, PERRLA, EOMI Neck: Supple, JVD not distended Respiratory: Clear to auscultation bilaterally, Normal air movement Cardiovascular: Regular rate/rhythm, Normal S1 S2 Gastrointestinal: Normal bowel sounds, No tenderness Musculoskeletal: No tenderness Integumentary: No rashes Neurological: Normal speech, Normal tone, Normal affect Lymphatics: No axilla or inguinal lymphadenopathy Laboratory Data at Discharge: WBC 7.2 K/uL (4.3-10.9) D 09/03/18 05:42 Hgb 10.3 g/dL (12.0-15.0) L 09/03/18 05:42 Hct 30.4 % (36.0-45.0) L 09/03/18 05:42 Plt Count 192 K/uL (152-406) 09/03/18 05:42 PT 11.4 SECONDS (9.5-12.5) 08/29/18 21:30 INR 0.97 08/29/18 21:30 Sodium 139 mmol/L (136-145) 09/03/18 05:42 Potassium 4.0 mmol/L (3.5-5.1) 09/03/18 05:42 BUN 20 mg/dL (7-18) H 09/03/18 05:42 Creatinine 0.86 mg/dL (0.55-1.3) 09/03/18 05:42 Glucose 111 mg/dL (74-106) H 09/03/18 05:42 Magnesium 2.7 mg/dL (1.8-2.4) H 09/01/18 06:50 Total Bilirubin 0.2 mg/dL (0.2-1.0) 09/03/18 05:42 AST 16 U/L (15-37) 09/03/18 05:42 ALT 28 U/L (12-78) 09/03/18 05:42 Alkaline Phosphatase 53 U/L (45-117) 09/03/18 05:42 Lipase 98 U/L (73-393) 08/29/18 21:30 Home Medications: Estropipate [Ortho-Est] 1 tab PO DAILY 08/30/18 Hydrocodone Bit/Acetaminophen [Hydrocodon-Acetaminophen 5-325] 0.5 tab PO Q6H PRN 08/30/18 Ibuprofen/Diphenhydramine HCl [Advil Pm Liqui-Gels] 2 each PO BEDTIME 08/30/18 Lisinopril 30 mg PO DAILY 08/30/18 Lorazepam [Ativan] 1 mg PO BID PRN 08/30/18 Montelukast [Singulair*] 10 mg PO BEDTIME 08/30/18 Azithromycin [Zithromax] 500 mg PO DAILY #4 tablet 09/03/18 predniSONE [Deltasone] 20 mg PO BID #8 tab 09/03/18 New Medications: Azithromycin [Zithromax] 500 mg PO DAILY #4 tablet predniSONE [Deltasone] 20 mg PO BID #8 tab Patient Discharge Instructions: Please follow up with your primary care physician in 1-2 weeks. Please return to the ED for worsening symptoms. New medications: Azithromycin (antibiotic), Prednisone (steroid) Diet: Regular Activity: Ad sigifrdeo Physician Review: Patient Assessed, Agree with Above Assessment and Plan Time spent managing pt's care (in minutes): 55
== END 2018-09-03 13:11 | disposition home or self-care (01) | DRG 193 ==
LOC: ER 21:00 → ERHOLD 08-30 01:56 → 4TH 08-30 02:02
PROVIDERS: ADMIT Internal Medicine; ATTEND Family Medicine
DX: J18.1 Lobar pneumonia, unspecified organism (principal); J96.01 Acute respiratory failure with hypoxia; J45.41 Moderate persistent asthma with (acute) exacerbation; R41.0 Disorientation, unspecified; G47.00 Insomnia, unspecified; I10 Essential (primary) hypertension; F17.210 Nicotine dependence, cigarettes, uncomplicated
CPT/HCPCS: 36415; 70450; 70551; 71045; 71046; 71275; 80048; 80053; 80076; 81003; 83605; 83690; 83735; 83880; 84145; 84484; 85025; 85610; 87040; 87070; 87205; 87804; 93005; 94640; 94760; 96365; 96366; 96375; 99285; J0456; J0696; J1650; J2920; J2930; J3475; J7030; Q9967